=== PATIENT | male | born 1990 | race Asian ===

== ENCOUNTER 2024-11-16 15:42 | Emergency (ER) | payer OTHER ==
[~2024-11-16] VITALS: Ht 182.9 cm; Wt 90.0 kg
[2024-11-16 15:46] VITALS: BP 124/60; PULSE 80; RESP 18; TEMP 37.1; O2SAT 100
[2024-11-16] MEDS: SODIUM CHLORIDE 0.9% 1,000 ML IV ONE (16:38)
[2024-11-16 17:11] LABS: BASOPHILS % 0.2 % (0.0-2.0); EOSINOPHILS % 0.7 % (0.0-5.0); HEMATOCRIT. 38.9 % (42.0-52.0); HEMOGLOBIN. 13.4 g/dL (14.0-18.0); LYMPHOCYTES % 14.5 % (20.0-50.0); MEAN PLATELET VOLUME 7.7 fl (7.4-10.4); MONOCYTES % 6.6 % (2.0-8.0); NEUTROPHILS % 78.0 % (40.0-76.0); PLATELET 201 x1000/uL (130-400); RED BLOOD CELL COUNT 4.27 mill/uL (4.7-6.1); RED CELL DISTRIBUTION WIDTH 13.6 % (11.6-14.6)
[2024-11-16 17:25] LABS: CREATININE 1.1 mg/dL (0.6-1.3)
[2024-11-16 17:26] LABS: UREA NITROGEN BLOOD 18 mg/dL (9-23)
== END 2024-11-16 18:59 | disposition home or self-care (01) ==
LOC: ER 16:19
DX: R25.2 Cramp and spasm (principal); M79.605 Pain in left leg; Z79.899 Other long term (current) drug therapy
CPT/HCPCS: 80048; 82550; 85025; 36415; 96360; 99283; Z7610 ×2